=== PATIENT | female | born 1945 | race Two or more races ===

== ENCOUNTER 2016-11-02 11:43 | Outpatient (CLI) | payer MEDICARE, OTHER ==
[2016-11-02 12:57] LABS: CREATININE 0.8 mg/dL (0.6-1.3)
== END 2016-11-02 23:59 | disposition home or self-care (01) ==
LOC: LAB 11:43
PROVIDERS: ATTEND Internal Medicine Interventional Cardiology
DX: I10 Essential (primary) hypertension (principal)
CPT/HCPCS: 36415; 82565-TC; 84520-TC

== ENCOUNTER 2016-11-07 09:02 | Outpatient (CLI) | payer MEDICARE, OTHER ==
[2016-11-07] MEDS ORDERED: CT SWABBABLE VALVE TRANS SET 1 EA INFUS.SET MC ONE (09:44)
[2016-11-07] MEDS ORDERED: IV NS 0.9% 250 ML IV ONE (09:44)
[2016-11-07] MEDS ORDERED: IOHEXOL-350 100 ML VIAL IV ONE (09:44)
== END 2016-11-07 23:59 | disposition home or self-care (01) ==
LOC: CT 09:02
PROVIDERS: ATTEND Internal Medicine Interventional Cardiology
DX: I25.10 Atherosclerotic heart disease of native coronary artery without angina pectoris (principal); I70.1 Atherosclerosis of renal artery; K44.9 Diaphragmatic hernia without obstruction or gangrene; N28.1 Cyst of kidney, acquired; K42.9 Umbilical hernia without obstruction or gangrene; E27.8 Other specified disorders of adrenal gland
CPT/HCPCS: 70498; 74175; J7050; Q9967

== ENCOUNTER 2016-11-09 08:52 | Outpatient (CLI) | payer MEDICARE, OTHER ==
[2016-11-09] MEDS ORDERED: IV NS 0.9% 250 ML IV ONE (09:14)
[2016-11-09] MEDS ORDERED: CT SWABBABLE VALVE TRANS SET 1 EA INFUS.SET MC ONE (09:14)
[2016-11-09] MEDS ORDERED: IOHEXOL 0 ML IV ONE (09:19)
[2016-11-09] MEDS ORDERED: IOHEXOL-350 100 ML VIAL IV ONE (10:28)
[2016-11-09] MEDS ORDERED: NITROGLYCERIN 4.9 GM SPRAY ONE (10:46)
[2016-11-09] MEDS ORDERED: IV NS 0.9% 500 ML IV ONE (15:53)
== END 2016-11-09 23:59 | disposition home or self-care (01) ==
LOC: CT 08:52
PROVIDERS: ATTEND Internal Medicine Interventional Cardiology
DX: I25.10 Atherosclerotic heart disease of native coronary artery without angina pectoris (principal)
CPT/HCPCS: 75574; 93005; J7040; J7050; Q9967